=== PATIENT | female | born 1980 | race Two or more races ===

== ENCOUNTER 2017-01-23 22:18 | Emergency (ER) | payer MEDICAID ==
[2017-01-23] MEDS ORDERED: FAMOTIDINE 20 MG TABLET ONE (23:20)
[2017-01-23] MEDS ORDERED: DEXAMETHASONE 4 MG TABLET ONE (23:20)
== END 2017-01-23 23:30 | disposition home or self-care (01) ==
LOC: ED 22:18
DX: L50.9 Urticaria, unspecified (principal); R05 Cough
CPT/HCPCS: 99282 ×2; A9270 ×2